=== PATIENT | male | born 1975 | race African-American/Black ===

== ENCOUNTER 2017-02-25 14:08 | Emergency (ER) | payer MEDICAID ==
[2017-02-25] MEDS ORDERED: OXYCODONE-ACETAMINOPHEN 5-325 MG TABLET PO ONE (14:22)
--- NOTE | 2017-02-25 14:23 | ER Document Report ---
HPI - HPI Patient complains to provider of: fall Onset: Just prior to arrival Onset/Duration: Sudden Quality of pain: Sharp Pain Level: 4 Context: Patient has a history of neurodegenerative syndrome OPCA. Patient does have a history of occasional falls at home due to this condition. Patient was getting up to go the bathroom and fell landing on his left side on the floor. Patient did not have any head injury or loss of consciousness. Patient complains of left shoulder and left rib pain. Patient complains of pain when lying supine. Associated Symptoms: Chest pain, Other - Left shoulder pain. denies: Nonproductive cough, Productive cough, Headache - Left lateral rib tenderness, Vomiting Exacerbated by: Supine, Movement Relieved by: Denies Similar symptoms previously: No Recently seen / treated by doctor: No - ROS ROS below otherwise negative: Yes Systems Reviewed and Negative: Yes All other systems reviewed and negative - NEURO Neurology: REPORTS: Weakness - Chronic due to neuro degenerat. DENIES: Headache - CARDIOVASCULAR Cardiovascular: REPORTS: Chest pain - Left lateral rib tenderne - RESPIRATORY Respiratory: REPORTS: Trouble Breathing. DENIES: Coughing - GASTROINTESTINAL Gastrointestinal: DENIES: Abdominal Pain, Nausea, Patient vomiting - MUSCULOSKELETAL Musculoskeletal: REPORTS: Extremity pain - Left shoulder pain, Back Pain - Left upper back pain. DENIES: Swelling - DERM Skin Color: Normal Skin Problems: None Past Medical History - General Information source: Patient - Social History Smoking Status: Current Every Day Smoker Frequency of alcohol use: None Drug Abuse: None Occupation: None Lives with: Family Family History: Reviewed & Not Pertinent - Medical History Medical History: Other - OPCA - Past Medical History Cardiac Medical History: Reports: Hx Hypercholesterolemia, Hx Hypertension Musculoskeltal Medical History: Denies Hx Arthritis, Reports Hx Muscle Weakness Past Surgical History: Reports: Hx Tonsillectomy. Denies: Hx Pacemaker - Immunizations Hx Diphtheria, Pertussis, Tetanus Vaccination: Yes Hx Pneumococcal Vaccination: 04/10/11 Vertical Provider Document - CONSTITUTIONAL Agree With Documented VS: Yes Exam Limitations: No Limitations General Appearance: WD/WN, No Apparent Distress - INFECTION CONTROL TRAVEL OUTSIDE OF THE [place] IN LAST 30 DAYS: No - HEENT HEENT: Atraumatic, Normal ENT Exam, Normocephalic - NECK Neck: Normal Inspection, Supple. negative: Lymphadenopathy-Left, Lymphadenopathy-Right - RESPIRATORY Respiratory: No Respiratory Distress. negative: Chest Non-Tender - left lateral rib tenderness, Rales, Rhonchi, Wheezing - CARDIOVASCULAR Cardiovascular: Regular Rhythm, No Murmur, Tachycardia Pulses: Normal: Radial - GI/ABDOMEN Gastrointestinal: Abdomen Soft, Abdomen Non-Tender, No Organomegaly - BACK Back: Abnormal Inspection - left trapezius tenderness, left thoracic paraspinal tenderness - MUSCULOSKELETAL/EXTREMETIES Musculoskeletal/Extremeties: MAEW - NEURO Level of Consciousness: Awake, Alert, Appropriate - DERM Integumentary: Warm, Dry, No Rash Course - Re-evaluation Re-evalutation: 02/25/17 15:32 On repeat examination. Patient without any lateral rib tenderness. Patient only with left upper thoracic back pain, left trapezius pain and left shoulder joint pain. Patient's heart rate 122. Family states that patient does have a history of high blood pressure as well as fast heart rate. 02/25/17 15:[address] Felix who advises basic labs and IV hydration to see if there can be some improvement in tachycardia 02/25/17 18:21 Dr. Felix bedside for consultation. Discussed patient's persistent tachycardia. Family insists that patient has had tachycardia and elevated blood pressure readings for several months. Patient continues to complain of left shoulder joint pain. No chest pain no abdominal pain. Dr Felix 5 his outpatient follow-up with cardiology as well as primary doctor for further evaluation. Also recommends orthopedic consult. Patient and family agree with this plan of care. Dr. Lundberg viewed patient's EKG. No concern for SC, dissection or intra-abdominal pathology at this time. 02/25/17 19:06 Patient continues with tachycardia at discharge with heart rate in the 120s. Offered patient additional evaluation as well as consultation with hospitalist for possible admission. Patient without any dyspnea, chest pain or abdominal pain. Patient and his father state that patient has had tachycardia and this is not a new symptom for him. Patient and patient's father declined any additional testing at this time. Patient and his father would prefer to follow- up as an outpatient with the [facility] admin on Monday as planned. Patient and family advised that patient can return at any point if he would like to continue with his medical evaluation or if he has any concerning symptoms. Patient and family verbalized understanding. Patient to the lobby via wheelchair with his family. - Laboratory Result Diagrams: 02/25/17 16:28 11/18/17 16:28 Laboratory results interpreted by me: 02/25/17 18:29 Labs- Entire Visit 02/25/17 02/25/17 02/25/17 16:28 16:28 16:28 WBC 8.5 RBC 5.37 Hgb 15.9 Hct 45.9 MCV 86 MCH 29.6 MCHC 34.6 RDW 13.4 Plt Count 246 Seg Neutrophils % 65.4 Lymphocytes % 25.9 Monocytes % 6.5 Eosinophils % 1.6 Basophils % 0.6 Absolute Neutrophils 5.6 Absolute Lymphocytes 2.2 Absolute Monocytes 0.6 Absolute Eosinophils 0.1 Absolute Basophils 0.0 Sodium 142.3 Potassium 4.2 Chloride 103 Carbon Dioxide 26 Anion Gap 13 BUN 16 Creatinine 0.94 Est GFR ( Amer) > 60 Est GFR (Non-Af Amer) > 60 Glucose 91 Calcium 9.5 Magnesium 1.9 Total Bilirubin 2.1 H Direct Bilirubin 0.4 Indirect Bilirubin Not Reportable Neonat Total Bilirubin Not Reportable AST 49 ALT 72 Alkaline Phosphatase 78 Total Protein 6.8 Albumin 4.4 TSH 1.25 - Diagnostic Test Radiology reviewed: Reports reviewed Discharge - Discharge Clinical Impression: Tachycardia Fall Qualifiers: Encounter type: initial encounter Qualified Code(s): W19.XXXA - Unspecified fall, initial encounter Sprain of shoulder, left Qualifiers: Encounter type: initial encounter Shoulder sprain type: unspecified sprain Qualified Code(s): S43.402A - Unspecified sprain of left shoulder joint, initial encounter Trapezius muscle strain Qualifiers: Encounter type: initial encounter Laterality: left Qualified Code(s): S46.812A - Strain of other muscles, fascia and tendons at shoulder and upper arm level, left arm, initial encounter Condition: Stable Disposition: HOME, SELF-CARE Instructions: Ice & Elevation ([facility]), Muscle Strain ([facility]), Shoulder Injury ([facility]) , Temporary Sling ([facility]), Upper Back Strain ([facility]), Warm Packs ([facility]) Additional Instructions: Return immediately for any new or worsening symptoms Followup with your primary care provider, call tomorrow to make a followup appointment Follow-up with orthopedic doctor for further evaluation of left shoulder joint pain. Call their office on Monday for an appointment. Follow-up with [facility] admin for further evaluation of rapid heart rate. Call Dr. Smith's office on Monday for an appointment. Let them know that you are seen in the emergency department over the weekend. Take your pain medication at home that you have as prescribed. Referrals: BELA TALAVERA FNP-C [Primary Care Provider] - 02/27/17 DIMA SHEIKH MD [ACTIVE STAFF] - 02/27/17 [facility] [Provider Group] - Follow up in 3-5 days
--- NOTE | 2017-02-25 15:13 | RADIOLOGY REPORT (SQ) ---
EXAM DESCRIPTION: RIBS LEFT W/PA CHEST COMPLETED DATE/TIME: 02/25/2017 2:52 pm REASON FOR STUDY: fall, shoulder, left rib pain COMPARISON: None. TECHNIQUE: Frontal view of the chest and additional views of the left ribs acquired. NUMBER OF VIEWS: Three views LIMITATIONS: None. FINDINGS: FRONTAL CXR: No pneumothorax. No pleural effusion. No atelectasis or infiltrates. RIBS: No displaced rib fractures. No lytic or blastic bony lesions. OTHER: No other significant finding. IMPRESSION: NO PNEUMOTHORAX. NO DISPLACED RIB FRACTURES. COMMENT: SITE OF TRAUMA/COMPLAINT MARKED/STAMP COMPLETED: No TECHNICAL DOCUMENTATION: JOB ID: [id number] [employer]- All Rights Reserved
[2017-02-25] MEDS ORDERED: NORMAL SALINE 1000 ML 1,000 ML IV ONE (15:39)
[2017-02-25] MEDS ORDERED: HYDROMORPHONE HCL INJ/PF 2 MG/ML AMPULE IV ONE ×2 (15:39→18:21)
--- NOTE | 2017-02-25 15:50 | RADIOLOGY REPORT (SQ) ---
EXAM DESCRIPTION: SHOULDER LEFT 2 OR MORE VIEWS COMPLETED DATE/TIME: 02/25/2017 2:52 pm REASON FOR STUDY: fall, shoulder, left rib pain COMPARISON: None. NUMBER OF VIEWS: Three views. TECHNIQUE: Internal rotation, external rotation, and Y view images acquired of the left shoulder. LIMITATIONS: None. FINDINGS: MINERALIZATION: Normal. BONES: No acute fracture or dislocation. No worrisome bone lesions. JOINTS: No dislocation. VISUALIZED LUNGS AND RIBS: No pneumothorax. No rib fracture. SOFT TISSUES: No radiopaque foreign body. OTHER: No other significant finding. IMPRESSION: NEGATIVE STUDY OF THE LEFT SHOULDER. NO RADIOGRAPHIC EVIDENCE OF ACUTE INJURY. TECHNICAL DOCUMENTATION: JOB ID: [id number] [employer]- All Rights Reserved
[2017-02-25 16:41] LABS: ABSOLUTE EOSINOPHILS # (AUTO) 0.1 10^3/uL (0.0-0.6); ABSOLUTE LYMPHOCYTES (AUTO) 2.2 10^3/uL (0.5-4.7); ABSOLUTE MONOCYTES (AUTO) 0.6 10^3/uL (0.1-1.4); ABSOLUTE NEUT (AUTO) 5.6 10^3/uL (1.7-8.2); BASOPHILS % (AUTO) 0.6 % (0-2); EOSINOPHILS % (AUTO) 1.6 % (0-6); HEMATOCRIT 45.9 % (37.9-51.0); HEMOGLOBIN 15.9 g/dL (13.5-17.0); HGB HCT DIFFERENCE 1.8; LYMPHOCYTES % (AUTO) 25.9 % (13-45); MEAN CORPUSCULAR HEMOGLOBIN 29.6 pg (27.0-33.4); MEAN CORPUSCULAR HGB CONC 34.6 g/dL (32.0-36.0); MEAN CORPUSCULAR VOLUME 86 fl (80-97); MONOCYTES % (AUTO) 6.5 % (3-13); RED BLOOD COUNT 5.37 10^6/uL (4.35-5.55); RED CELL DISTRIBUTION WIDTH 13.4 % (11.5-14.0); SEGMENTED NEUTROPHILS % (AUTO) 65.4 % (42-78); WHITE BLOOD COUNT 8.5 10^3/uL (4.0-10.5)
[2017-02-25 17:00] LABS: ALANINE AMINOTRANSFERASE 72 U/L (21-72); ALBUMIN 4.4 g/dL (3.5-5.0); ALKALINE PHOSPHATASE 78 U/L (38-126); ANION GAP 13 (5-19); ASPARTATE AMINO TRANSFERASE 49 U/L (17-59); BILIRUBIN,DIRECT 0.4 mg/dL (0.0-0.4); BILIRUBIN,TOTAL 2.1 mg/dL (0.2-1.3); BLOOD UREA NITROGEN 16 mg/dL (7-20); CALCIUM 9.5 mg/dL (8.4-10.2); CARBON DIOXIDE 26 mmol/L (22-30); CHLORIDE 103 mmol/L (98-107); CREATININE RESULT 0.94 mg/dL (0.52-1.25); GLUCOSE 91 mg/dL (75-110); MAGNESIUM 1.9 mg/dL (1.6-2.3); POTASSIUM 4.2 mmol/L (3.6-5.0); SODIUM 142.3 mmol/L (137-145); TOTAL PROTEIN 6.8 g/dL (6.3-8.2)
[2017-02-25 18:57] VITALS: BP 134/79
--- NOTE | 2017-02-26 09:19 | EKG REPORT ---
SEVERITY:- BORDERLINE ECG - SINUS TACHYCARDIA BORDERLINE T ABNORMALITIES, INFERIOR LEADS : Confirmed by: Inge Cheng 26-Feb-2017 09:18:37
== END 2017-02-25 19:04 | disposition home or self-care (01) ==
LOC: ER 14:08
DX: S43.402A Unspecified sprain of left shoulder joint, initial encounter (principal); S46.812A Strain of other muscles, fascia and tendons at shoulder and upper arm level, left arm, initial encounter; R00.0 Tachycardia, unspecified; M25.512 Pain in left shoulder; R07.81 Pleurodynia; W19.XXXA Unspecified fall, initial encounter; F17.200 Nicotine dependence, unspecified, uncomplicated
CPT/HCPCS: 93005; 96376; 99284; 96361; 96374; 36415; 83735; 84443; 85025; 80053; 71101; 73030; 93010; J1170; J7030